=== PATIENT | female | born 1935 | race Caucasian/White ===

== ENCOUNTER 2017-08-07 12:06 | Emergency (ER) | payer OTHER ==
[~2017-08-07] VITALS: Ht 167.6 cm; Wt 68.0 kg
[2017-08-07 12:06] VITALS: BP_SYST 126
[2017-08-07 12:59] LABS: BASOPHILS % (AUTO) 0.3 % (0.0-2.0); EOSINOPHILS # (AUTO) 0.2 K/uL (0.0-0.4); EOSINOPHILS % (AUTO) 1.7 % (0.0-4.0); HEMATOCRIT 30.1 % (36-48); HEMOGLOBIN 9.9 g/dL (12.0-16.0); LYMPHOCYTES # (AUTO) 1.6 K/uL (1.0-5.5); LYMPHOCYTES % (AUTO) 17.1 % (20.5-51.5); MEAN CORPUSCULAR HEMOGLOBIN 28 pg (27-31); MEAN CORPUSCULAR HGB CONC 33 % (32-36); MEAN CORPUSCULAR VOLUME 85 fL (79.0-98.0); MONOCYTES # (AUTO) 0.8 K/uL (0.0-1.0); MONOCYTES % (AUTO) 8.2 % (1.7-9.3); NEUTROPHILS # (AUTO) 6.6 K/uL (1.8-7.7); NEUTROPHILS % (AUTO) 72.7 % (40.0-70.0); PLATELET COUNT (AUTO) 383 K/uL (130-430); RED BLOOD CELL COUNT(AUTO) 3.55 MIL/uL (4.2-6.2); RED CELL DISTRIBUTION WIDTH 14.2 % (9.0-15.0); WHITE BLOOD COUNT (AUTO) 9.2 K/uL (4.8-10.8)
[2017-08-07] MEDS ORDERED: MORPHINE 4 MG/ML INJ. SYRINGE IVP ONE ×2 (13:15→13:45)
[2017-08-07 13:22] LABS: ANION GAP 8 (5-15); CHLORIDE 102 mmol/L (98-107); GLUCOSE 112 mg/dL (70-99); SODIUM SERUM 136 mmol/L (136-145); UREA NITROGEN, BLOOD 29 mg/dL (8-21)
[2017-08-07 13:28] LABS: ALANINE AMINOTRANSFERASE 21 U/L (12-78); ALBUMIN 2.3 g/dL (3.4-4.8); ASPARTATE AMINOTRANSFERASE 52 U/L (10-37); TOTAL BILIRUBIN 0.5 mg/dL (0.0-1.0)
[2017-08-07 14:20] LABS: INR 1.3 (0.8-1.2)
[2017-08-07] MEDS ORDERED: HYDR-1189 PO (16:06)
[2017-08-07] MEDS ORDERED: ANT30 PO (16:06)
[2017-08-07] MEDS ORDERED: FAMO20TA8 PO (16:06)
[2017-08-07] MEDS ORDERED: HYDR-4100 PO (16:06)
[2017-08-07] MEDS ORDERED: ARGI1POW13 PO (16:06)
[2017-08-07] MEDS ORDERED: MULT9LIQ2 PO (16:06)
[2017-08-07] MEDS ORDERED: MULT-1089 PO (16:06)
[2017-08-07] MEDS ORDERED: CYAI1000 IM (16:06)
[2017-08-07] MEDS ORDERED: ASCO500T20 PO (16:06)
[2017-08-07] MEDS ORDERED: RIVA20TA PO (16:06)
[2017-08-07] MEDS ORDERED: cefTRIAXone 1 GM IVPB PREMIX 50 ML IV ONE (16:45)
[2017-08-07 19:50] VITALS: BP_SYST 114
== END 2017-08-07 19:43 ==
LOC: SED 12:06
DX: N39.0 Urinary tract infection, site not specified (principal); R41.0 Disorientation, unspecified; K21.9 Gastro-esophageal reflux disease without esophagitis; Z96.649 Presence of unspecified artificial hip joint; Z79.899 Other long term (current) drug therapy
CPT/HCPCS: 36415; 70450; 71010; 80053; 83605; 83880; 84484; 85025; 85610; 85730; 87040; 93005; 96365; 96375; 96376; 99285; J0696; J2270